=== PATIENT | female | born 1965 | race Caucasian/White ===

== ENCOUNTER 2016-07-28 03:07 | Emergency (ER) | payer MEDICAID ==
[~2016-07-28] VITALS: Ht 160 cm; Wt 64.4 kg
[2016-07-28 03:54] LABS: Urine RBC None Seen /hpf (0 - 4)
[2016-07-28 04:05] LABS: Urine Bilirubin Negative (Negative); Urine Blood Negative /uL (Negative); Urine Glucose Normal (Normal); Urine Ketone Negative (Negative); Urine Nitrite Negative (Negative); Urine Squamous Epithelial Cell FEW /hpf (<5); Urine Urobilinogen Normal (Negative); Urine pH 6.5 (5.0-8.0)
[2016-07-28 04:08] LABS: Urine Color Straw (Yellow)
[2016-07-28 04:19] LABS: Basophils # (auto) 0 uL; Basophils % (auto) 0.8 % (0.0-2.0); DEFINITIVE VIEW TRANSMISSION; Eosinophils # (auto) 0.1 uL; Eosinophils % (auto) 1.4 % (0.0-7.0); Hematocrit 42.5 % (36.0-46.0); Hemoglobin 13.3 g/dL (12.2-16.2); Lymphocytes # (auto) 1.9 uL; Lymphocytes % (auto) 33.3 % (10.0-50.0); Mean Corpuscular Hemoglobin 24.5 pg (28.0-32.0); Mean Corpuscular Hgb Conc. 31.2 g/dL (32.0-36.0); Mean Corpuscular Volume 78.4 fL (80.0-100.0); Mean Platelet Volume 7.4 fL (7.4-10.4); Monocytes # (auto) 0.6 uL; Monocytes % (auto) 11.5 % (0.0-12.0); Platelet Count (auto) 388 10^3/uL (140-450); Red Cell Distribution Width 17.9 % (11.6-16.0); White Blood Cell 5.6 10^3/uL (4.4-10.8)
[2016-07-28 04:22] LABS: Albumin 3.7 g/dL (3.4-5.0); Calcium 8.4 mg/dL (8.5-10.1); Magnesium 2.2 mg/dL (1.6-2.6); Potassium 4.1 mmol/L (3.5-5.1)
[2016-07-28 04:25] LABS: Bilirubin, Total 0.2 mg/dL (0.2-1.0); Total Protein 7.8 g/dL (6.4-8.2)
[2016-07-28] MEDS ORDERED: SODIUM CHLORIDE 0.9% 1,000 ML IV ONE (07:22)
[2016-07-28] MEDS ORDERED: IPRATROPIUM BROM 0.5 MG/2.5ML INH SOL NEB ONE (07:30)
[2016-07-28] MEDS ORDERED: cefTRIAXone 1GM/50ML D5W 50 ML IV ONE (07:30)
[2016-07-28] MEDS ORDERED: ALBUTEROL SULF 2.5 MG/0.5ML(0.5%) NEB SOLN NEB ONE (07:30)
[2016-07-28 10:49] VITALS: BP 127/80
== END 2016-07-28 11:28 | disposition home or self-care (01) ==
LOC: ER 03:13
DX: J18.1 Lobar pneumonia, unspecified organism (principal); E03.9 Hypothyroidism, unspecified; I10 Essential (primary) hypertension; Z87.442 Personal history of urinary calculi
CPT/HCPCS: 36415; 71020; 80053; 81001; 83735; 84443; 84484; 85025; 87040; 93005; 94640; 94761; 96365; 99285; J0696

== ENCOUNTER 2016-11-07 22:42 | Emergency (ER) | payer MEDICAID ==
[~2016-11-07] VITALS: Ht 160 cm; Wt 71.7 kg
[2016-11-07 23:40] LABS: Basophils # (auto) 0 uL; Basophils % (auto) 0.2 % (0.0-2.0); DEFINITIVE VIEW TRANSMISSION; Eosinophils # (auto) 0.1 uL; Eosinophils % (auto) 1.2 % (0.0-7.0); Hemoglobin 12.9 g/dL (12.2-16.2); Lymphocytes # (auto) 2.6 uL; Lymphocytes % (auto) 23.8 % (10.0-50.0); Mean Corpuscular Hemoglobin 23.5 pg (28.0-32.0); Mean Corpuscular Hgb Conc. 31.5 g/dL (32.0-36.0); Mean Corpuscular Volume 74.8 fL (80.0-100.0); Mean Platelet Volume 7.9 fL (7.4-10.4); Monocytes # (auto) 0.8 uL; Monocytes % (auto) 7.4 % (0.0-12.0); Neutrophils # (auto) 7.5 uL; Neutrophils % (auto) 67.4 % (37.0-80.0); Platelet Count (auto) 475 10^3/uL (140-450); Red Cell Distribution Width 14.1 % (11.6-16.0)
[2016-11-07 23:56] LABS: Albumin 3.9 g/dL (3.4-5.0); Anion Gap 11 (5-15); Calcium 8.9 mg/dL (8.5-10.1); Carbon Dioxide 28 mmol/L (21-32); Chloride 105 mmol/L (98-107); Glucose 121 mg/dL (74-106); INR 0.91 (0.9-1.15); Partial Thromboplastin Time 28.2 sec (22.64-33.71); Prothrombin Time 9.8 sec (9.37-12.3); Sodium 144 mmol/L (136-145)
[2016-11-08 00:01] LABS: Alkaline Phosphatase 94 U/L (45-117); Aspartate Aminotransferase 15 U/L (15-37); BUN/Creatinine Ratio 14.9; Bilirubin, Total 0.2 mg/dL (0.2-1.0); Blood Urea Nitrogen 11 mg/dL (7-18); GFR African American 107 mL/min; GFR Non-African American 89 mL/min
[2016-11-08 00:05] LABS: B-Type Natriuretic Peptide 1.42 pg/mL (0-100)
[2016-11-08 00:06] LABS: Temperature: 23.1 C (20.0-25.0)
[2016-11-08] MEDS ORDERED: ONDANSETRON ODT 4 MG TAB PO ONE ×2 (00:30→03:15)
[2016-11-08 01:58] LABS: Urine Bilirubin Negative (Negative); Urine Blood Negative /uL (Negative); Urine Color Colorless (Yellow); Urine Glucose Normal (Normal); Urine Ketone Negative (Negative); Urine Nitrite Negative (Negative); Urine RBC <1 /hpf (0 - 4); Urine Squamous Epithelial Cell FEW /hpf (<5); Urine Urobilinogen Normal (Negative); Urine pH 5.5 (5.0-8.0)
[2016-11-08 03:47] VITALS: BP 143/94
== END 2016-11-08 04:32 | disposition home or self-care (01) ==
LOC: ER 22:42
DX: D72.829 Elevated white blood cell count, unspecified (principal); I10 Essential (primary) hypertension; N39.0 Urinary tract infection, site not specified; Z88.0 Allergy status to penicillin; Z88.1 Allergy status to other antibiotic agents; Z88.6 Allergy status to analgesic agent; R06.02 Shortness of breath
CPT/HCPCS: 36415; 71010; 80053; 81001; 83880; 84443; 84484; 85025; 85610; 85730; 93005; 99285; Q0162

== ENCOUNTER 2017-06-01 09:52 | Emergency (ER) | payer MEDICAID ==
[~2017-06-01] VITALS: Ht 160 cm; Wt 72.6 kg
[2017-06-01 10:26] VITALS: BP 166/95
== END 2017-06-01 10:53 | disposition home or self-care (01) ==
LOC: ER 10:02
DX: J20.9 Acute bronchitis, unspecified (principal); I10 Essential (primary) hypertension; Z76.0 Encounter for issue of repeat prescription; Z82.49 Family history of ischemic heart disease and other diseases of the circulatory system; Z83.3 Family history of diabetes mellitus

== ENCOUNTER 2017-07-24 20:49 | Emergency (ER) | payer MEDICAID ==
[~2017-07-24] VITALS: Ht 160 cm; Wt 72.6 kg
[2017-07-24 21:13] VITALS: BP 184/101
== END 2017-07-24 22:11 | disposition left against medical advice (07) ==
LOC: ER 20:49
DX: M79.89 Other specified soft tissue disorders (principal); L53.9 Erythematous condition, unspecified; Z53.21 Procedure and treatment not carried out due to patient leaving prior to being seen by health care provider

== ENCOUNTER 2017-08-15 16:08 | Emergency (ER) | payer MEDICAID ==
[~2017-08-15] VITALS: Ht 160 cm; Wt 72.1 kg
[2017-08-15 16:28] VITALS: BP 180/87
[2017-08-15 17:03] LABS: Basophils # (auto) 0.1 uL; Eosinophils # (auto) 0.1 uL; Monocytes # (auto) 0.6 uL; Red Cell Distribution Width 17.5 % (11.8-14.3)
[2017-08-15 17:13] LABS: Albumin 3.9 g/dL (3.4-5.0); BUN/Creatinine Ratio 23.2; Bilirubin, Total 0.2 mg/dL (0.2-1.0); Calcium 8.5 mg/dL (8.5-10.1); Potassium 3.9 mmol/L (3.5-5.1); Total Protein 8.1 g/dL (6.4-8.2)
[2017-08-15 17:27] LABS: Neutrophils % (auto) 69.1 % (37.0-80.0); White Blood Cell 8.9 10^3/uL (4.4-10.8)
[2017-08-15 17:28] LABS: Basophils % (auto) 0.8 % (0.0-2.0); Eosinophils % (auto) 0.6 % (0.0-7.0); Hemoglobin 11.3 g/dL (12.2-16.2); Lymphocytes % (auto) 22.5 % (10.0-50.0); Neutrophils # (auto) 6.1 uL
[2017-08-15 17:29] LABS: Hematocrit 34.5 % (36.0-46.0); Mean Corpuscular Hemoglobin 25.2 pg (28.0-32.0); Mean Corpuscular Hgb Conc. 32.8 g/dL (32.0-36.0); Mean Corpuscular Volume 76.8 fL (80.0-100.0); Platelet Count (auto) 391 10^3/uL (140-450)
[2017-08-15 17:53] LABS: INR 0.92 (0.9-1.15); Partial Thromboplastin Time 27.8 sec (22.64-33.71)
== END 2017-08-15 21:31 | disposition home or self-care (01) ==
LOC: ER 16:15
DX: N91.2 Amenorrhea, unspecified (principal); L60.0 Ingrowing nail; E03.9 Hypothyroidism, unspecified; I10 Essential (primary) hypertension; Z88.8 Allergy status to other drugs, medicaments and biological substances; Z88.0 Allergy status to penicillin; Z90.721 Acquired absence of ovaries, unilateral
CPT/HCPCS: 36415; 76830; 76856; 80053; 85025; 85610; 85730